=== PATIENT | male | born 1990 | race Hispanic/Latino ===

== ENCOUNTER 2017-12-24 11:28 | Emergency (ER) | payer MEDICARE, OTHER ==
[~2017-12-24] VITALS: Ht 172.7 cm; Wt 60.8 kg
[~2017-12-24 11:28] MED LIST: AZATHIOPRINE50 MG PO; CEFUROXIME500 MG PO; FOSAMAX70 MG PO; LABETALOL HCL200 MG PO; MAGNESIUM100 MG PO; PREDNISONE5 MG PO; TACROLIMUS1 MG PO
[2017-12-24] MEDS ORDERED: CIPROFLOXACIN-DEXAMETHASONE (OTIC) 7.5 ML BOTTLE OT SCH (12:30)
== END 2017-12-24 12:00 | disposition home or self-care (01) ==
LOC: ER 11:28
DX: S00.411A Abrasion of right ear, initial encounter (principal); W22.8XXA Striking against or struck by other objects, initial encounter; Y93.E8 Activity, other personal hygiene; Y92.008 Other place in unspecified non-institutional (private) residence as the place of occurrence of the external cause
CPT/HCPCS: 99282

== ENCOUNTER 2021-03-08 18:14 | Emergency (ER) | payer MEDICARE, OTHER ==
[~2021-03-08] VITALS: Ht 172.7 cm; Wt 60.8 kg
[2021-03-08 19:00] LABS: BASOPHILS % 0.4 % (0.0-1.0); EOSINOPHILS # (AUTO) 0.1 (0.0-0.4); HEMATOCRIT 22.5 % (38.2-49.6); HEMOGLOBIN 7.3 g/dL (14.0-18.0); LYMPHOCYTES # (AUTO) 1.3 (1.0-3.2); LYMPHOCYTES % 26.1 % (18.0-39.1); MEAN CORPUSCULAR HEMOGLOBIN 29.7 pg (28-32); MEAN CORPUSCULAR HGB CONC 32.4 g/dL (31-35); MEAN CORPUSCULAR VOLUME 91.5 fL (81-99); MONOCYTES # (AUTO) 0.5 (0.2-0.8); MONOCYTES % 9.4 % (4.4-11.3); NEUTROPHILS # (AUTO) 3.1 (2.1-6.9); NEUTROPHILS % 61.7 % (38.7-80.0); PLATELET COUNT 204 x10e3/uL (140-360); RED BLOOD COUNT 2.46 x10e6/uL (4.3-5.7)
[2021-03-08 19:14] LABS: ANION GAP 15.4 mmol/L (8-16); CALCIUM 8.2 mg/dL (8.4-10.2); CREATININE, SERUM 6.5 mg/dL (0.72-1.25); POTASSIUM 3.4 mmol/L (3.5-5.1)
[2021-03-08 19:45] VITALS: BP 133/85
== END 2021-03-08 19:53 | disposition home or self-care (01) ==
LOC: ER 18:35
DX: D64.9 Anemia, unspecified (principal); I12.0 Hypertensive chronic kidney disease with stage 5 chronic kidney disease or end stage renal disease; N18.6 End stage renal disease; Z99.2 Dependence on renal dialysis; Q79.4 Prune belly syndrome
CPT/HCPCS: 36415; 80048; 85025; 86850; 86900; 99283

== ENCOUNTER 2021-12-16 17:31 | Emergency (ER) | payer OTHER ==
[~2021-12-16] VITALS: Ht 172.7 cm; Wt 49.6 kg
[2021-12-16] MEDS ORDERED: CARVEDILOL12.5 MG PO (18:38)
[2021-12-16] MEDS ORDERED: VELTASSA8.4 GM (18:38)
[2021-12-16] MEDS ORDERED: HYDRALAZINE HCL25 MG PO (18:38)
[2021-12-16] MEDS ORDERED: AMLODIPINE BESY10 MG PO (18:38)
[2021-12-16] MEDS ORDERED: LISINOPRIL2.5 MG PO (18:38)
[2021-12-16] MEDS ORDERED: RENAGEL800 MG PO (18:38)
[2021-12-16] MEDS ORDERED: SOD POLYSTYRENE SULFONATE SUSP 15 GM/60 ML BTL PO STA (18:57)
[2021-12-16] MEDS ORDERED: DEXTROSE 50% SYRINGE 50 ML IV STA (18:57)
[2021-12-16] MEDS ORDERED: ALBUTEROL SULF 0.083% NEB SOLN 3 ML NEB NEB STA (18:57)
[2021-12-16] MEDS ORDERED: INSULIN REGULAR, HUMAN 100 UNIT/1 ML IV ONE (19:00)
[2021-12-16] MEDS ORDERED: SOD POLYSTYRENE SULFONATE SUSP 15 GM/60 ML BTL ONE (19:03)
[2021-12-16] MEDS ORDERED: SODIUM BICARBONATE 8.4% 50 ML VIAL ONE (19:08)
[2021-12-16] MEDS ORDERED: DEXTROSE 50% SYRINGE 50 ML IV ONE (19:12)
[2021-12-16] MEDS ORDERED: CLONIDINE HCL 0.1 MG TAB PO ONE (19:15)
== END 2021-12-16 20:26 | disposition home or self-care (01) ==
LOC: FSED 17:34
DX: E87.5 Hyperkalemia (principal); I12.0 Hypertensive chronic kidney disease with stage 5 chronic kidney disease or end stage renal disease; N18.6 End stage renal disease; Z99.2 Dependence on renal dialysis; T86.12 Kidney transplant failure; Z91.048 Other nonmedicinal substance allergy status
CPT/HCPCS: 80053; 85025; 93005; 99284; J7799